=== PATIENT | male | born 1970 | race African-American/Black ===

== ENCOUNTER 2021-12-31 05:14 | Emergency (ER) | payer MEDICAID ==
[~2021-12-31] VITALS: Ht 180.3 cm; Wt 93.0 kg
[2021-12-31] MEDS ORDERED: LEVETIRACETAM 500MG TABLET PO ONE (05:30)
[2021-12-31 05:59] LABS: BASOPHILS % 0.7 % (0.0-2.0); EOSINOPHILS % 2.4 % (0.0-5.0); HEMATOCRIT. 38.1 % (42.0-52.0); HEMOGLOBIN. 12.7 g/dL (14.0-18.0); LYMPHOCYTES % 31.7 % (20.0-50.0); MEAN CORPUSCULAR HEMOGLOBIN 30.7 pg (28.0-32.0); MEAN CORPUSCULAR VOLUME 92.7 fL (80.0-94.0); MEAN PLATELET VOLUME 10.4 fl (7.4-10.4); MONOCYTES % 5.5 % (2.0-8.0); NEUTROPHILS % 59.7 % (40.0-76.0); PLATELET 149 x1000/uL (130-400); RED BLOOD CELL COUNT 4.12 mill/uL (4.7-6.1); RED CELL DISTRIBUTION WIDTH 14.5 % (11.6-14.6)
[2021-12-31 06:07] LABS: CHLORIDE 109 mEq/L (98-107)
[2021-12-31 06:14] LABS: ETHANOL BLOOD < 10 mg/dL
[2021-12-31] MEDS ORDERED: KEPP500 MT (07:58)
[2021-12-31 08:00] VITALS: BP 105/52
== END 2021-12-31 09:07 | disposition home or self-care (01) ==
LOC: ER 05:38
DX: G40.509 Epileptic seizures related to external causes, not intractable, without status epilepticus (principal)
CPT/HCPCS: 36415; 80053; 80307; 80320; 80329; 85025; 99283; G0480